=== PATIENT | male | born 1965 | race Caucasian/White ===

== ENCOUNTER 2016-07-14 19:49 | Emergency (ER) | payer OTHER ==
[2016-07-14 20:16] VITALS: BP 137/85
[2016-07-14] MEDS ORDERED: Azithromycin TAB* 250 MG PO ONE (20:48)
--- NOTE | 2016-07-14 21:17 | UC ---
Ear Complaint HPI - HPI Summary HPI Summary: LEFT EAR AND JAW PAIN FOR SIX DAYS. WORSE LAST TWO DAYS. RADIATES TO LEFT BACK UPPER TOOTH. NO FEVER. CAUSING DIZZINESS AND NAUSEA. - History of Current Complaint Chief Complaint: UC Stated Complaint: TEETH,EAR & JAW PAIN Time Seen by Provider: 07/14/16 20:21 Hx Obtained From: Patient Onset/Duration: Gradual Onset, Lasting Days, Still Present, Worse Since - TODAY Severity Initially: Moderate Severity Currently: Moderate Associated Signs/Symptoms: Positive: Hearing Loss, URI Symptoms - Allergies/Home Medications Allergies/Adverse Reactions: Allergies Allergy/AdvReac Type Severity Reaction Status Date / Time Penicillins Allergy Hives Verified 04/20/16 12:08 hay fever* Allergy Intermediate Runny Nose Uncoded 04/20/16 12:08 pet dander* Allergy Intermediate Runny Nose Uncoded 04/20/16 12:08 Home Medications: Home Medications Albuterol Sulfate [Proair Respiclick] 07/14/16 [History] PMH/Surg Hx/FS Hx/Imm Hx Previously Healthy: Yes Endocrine History Of: Denies: Diabetes, Thyroid Disease Cardiovascular History Of: Reports: Hypertension - NO meds; dietary control Denies: Cardiac Disorders, Pacemaker/ICD Respiratory History Of: Reports: Asthma - Uses OTC inhaler Denies: COPD GI/ History Of: Denies: Ulcer, Renal Disease - Surgical History Surgical History: Yes Surgery Procedure, Year, and Place: sinus surgery october 11 2012 - Family History Known Family History: Positive: Cardiac Disease Negative: Diabetes - Social History Occupation: Employed Full-time Lives: With Family Alcohol Use: Daily Substance Use Type: None Smoking Status (MU): Light Every Day Tobacco Smoker Cessation Counseling: Patient Advised to Stop Review of Systems Constitutional: Negative Skin: Negative Eyes: Negative ENT: Dental Pain, Ear Ache Respiratory: Negative Cardiovascular: Negative Gastrointestinal: Negative Genitourinary: Negative Motor: Negative Neurovascular: Negative Musculoskeletal: Negative Neurological: Negative Psychological: Negative All Other Systems Reviewed And Are Negative: Yes Physical Exam Triage Information Reviewed: Yes Vital Signs: Initial Vital Signs Temp 98.5 F 07/14/16 20:08 Pulse 87 07/14/16 20:08 Resp 16 07/14/16 20:08 BP 137/85 07/14/16 20:08 Pulse Ox 100 07/14/16 20:08 Eye Exam: Normal Eyes: Positive: Conjunctiva Clear ENT: Positive: Hearing grossly normal - AFTER RIGHT CERUMEN IRRIGATION, TM bulging, TM dull, Other: - ERRETHEMA EDEMA EXTERNAL AUDITORY CANAL Dental: Positive: Percussion Tenderness @ - 15,16,17 Neck exam: Normal Neck: Positive: Supple, Nontender, No Lymphadenopathy Respiratory Exam: Normal Respiratory: Positive: Chest non-tender, Lungs clear, Normal breath sounds, No respiratory distress, No accessory muscle use Cardiovascular Exam: Normal Cardiovascular: Positive: RRR, No Murmur, Pulses Normal, Brisk Capillary Refill Abdominal Exam: Normal Musculoskeletal Exam: Normal Neurological Exam: Normal Psychological Exam: Normal Skin Exam: Normal Ear Complaint Course/Dx - Differential Dx/Diagnosis Differential Diagnosis/HQI/PQRI: Otitis Externa, Otitis Media, Trauma, URI Provider Diagnoses: RIGHT CERUMEN IMPACTION. LEFT OTITIS EXTERNA. ODONTOGENIC PAIN 15, 16, 17 Discharge - Discharge Plan Condition: Stable Disposition: HOME Prescriptions: Azithromycin TAB* [Zithromax TAB (Z-BRENNAN) 250 mg #6 tabs] 250 mg PO DAILY #4 tab Neomyc/Polym/HC 1% OTIC SUSP* [Cortisporin Otic Susp 1%*] 4 drop LEFT EAR TID # 1 btl Patient Education Materials: Otitis Externa (ED), Cerumen Impaction (ED), Toothache (ED) Referrals: Rosendo Gupta MD [Primary Care Provider] - [facility] 1 - TENDER HERE
== END 2016-07-14 21:35 | disposition home or self-care (01) ==
LOC: UCEAST 19:49
DX: H61.21 Impacted cerumen, right ear (principal); H60.92 Unspecified otitis externa, left ear; K08.89 Other specified disorders of teeth and supporting structures; Z88.0 Allergy status to penicillin; F17.210 Nicotine dependence, cigarettes, uncomplicated
CPT/HCPCS: 99212; A9270-GY; G0463